=== PATIENT | female | born 1985 | race African-American/Black ===

== ENCOUNTER 2018-12-18 04:43 | Emergency (ER) | payer MEDICAID ==
[~2018-12-18] VITALS: Ht 167.6 cm; Wt 91.6 kg
[2018-12-18 06:06] LABS: CLARITY URINE CLOUDY (CLEAR); COLOR URINE DARK YELLOW (YELLOW); KETONES URINE TRACE (NEGATIVE); LEUKOCYTE ESTERASE URINE NEGATIVE (NEGATIVE); NITRITE URINE NEGATIVE (NEGATIVE); OCCULT BLOOD URINE 1+ (NEGATIVE); PROTEIN URINE NEGATIVE (NEGATIVE)
[2018-12-18] MEDS ORDERED: ACETAMINOPHEN 500MG TABLET PO ONE (07:30)
[2018-12-18 08:30] VITALS: BP 113/74
== END 2018-12-18 09:15 | disposition home or self-care (01) ==
LOC: ER 04:43
DX: N39.0 Urinary tract infection, site not specified (principal); R51 Headache; N92.6 Irregular menstruation, unspecified; F17.200 Nicotine dependence, unspecified, uncomplicated; F12.10 Cannabis abuse, uncomplicated; Z88.0 Allergy status to penicillin; Z98.890 Other specified postprocedural states
CPT/HCPCS: 99283

== ENCOUNTER 2019-01-02 20:22 | Emergency (ER) | payer MEDICAID, OTHER ==
[~2019-01-02] VITALS: Ht 167.6 cm; Wt 91.0 kg
[2019-01-02 20:55] VITALS: BP 126/83
== END 2019-01-02 23:00 | disposition left against medical advice (07) ==
LOC: ER 20:22
DX: F22 Delusional disorders (principal); F12.10 Cannabis abuse, uncomplicated; F17.210 Nicotine dependence, cigarettes, uncomplicated; Z98.890 Other specified postprocedural states; Z88.0 Allergy status to penicillin
CPT/HCPCS: 99284

== ENCOUNTER 2019-04-11 03:10 | Emergency (ER) | payer OTHER ==
[~2019-04-11] VITALS: Ht 172.7 cm; Wt 91.0 kg
[2019-04-11 03:27] VITALS: BP 110/67
== END 2019-04-11 04:40 | disposition left against medical advice (07) ==
LOC: ER 03:25
DX: F29 Unspecified psychosis not due to a substance or known physiological condition (principal); Z53.21 Procedure and treatment not carried out due to patient leaving prior to being seen by health care provider

== ENCOUNTER 2019-04-23 12:52 | Emergency (ER) | payer MEDICAID, OTHER ==
[~2019-04-23] VITALS: Ht 167.6 cm; Wt 95.0 kg
[2019-04-23 13:06] VITALS: BP 128/75
[2019-04-23] MEDS ORDERED: ACETAMINOPHEN 500MG TABLET PO ONE (14:30)
== END 2019-04-23 14:52 | disposition home or self-care (01) ==
LOC: ER 14:48
DX: L03.116 Cellulitis of left lower limb (principal); Z98.890 Other specified postprocedural states; Z88.0 Allergy status to penicillin
CPT/HCPCS: 99283

== ENCOUNTER 2020-03-14 23:27 | Emergency (ER) | payer MEDICAID ==
[~2020-03-14] VITALS: Ht 167.6 cm; Wt 94.0 kg
[2020-03-14 23:36] VITALS: BP 132/83
== END 2020-03-15 01:39 | disposition home or self-care (01) ==
LOC: ER 23:27
DX: M79.672 Pain in left foot (principal); M79.671 Pain in right foot; Z86.59 Personal history of other mental and behavioral disorders; Z88.0 Allergy status to penicillin; Z98.890 Other specified postprocedural states
CPT/HCPCS: 99282

== ENCOUNTER 2020-04-15 05:10 | Emergency (ER) | payer MEDICAID ==
[~2020-04-15] VITALS: Ht 172.7 cm; Wt 82.0 kg
[2020-04-15 06:20] VITALS: BP 110/70
[2020-04-15 06:31] LABS: BASOPHILS % 0.6 % (0.0-2.0); EOSINOPHILS % 0.2 % (0.0-5.0); HEMATOCRIT. 37.5 % (36.0-48.0); LYMPHOCYTES % 17.2 % (20.0-50.0); MEAN CORPUSCULAR HEMOGLOBIN 25.4 pg (28.0-32.0); MEAN CORPUSCULAR VOLUME 79.5 fL (81.0-99.0); MEAN PLATELET VOLUME 8.4 fl (7.4-10.4); MONOCYTES % 6.1 % (2.0-8.0); NEUTROPHILS % 75.9 % (40.0-76.0); PLATELET 436 x1000/uL (130-400); RED BLOOD CELL COUNT 4.71 mill/uL (4.2-5.4)
[2020-04-15 06:40] LABS: CHLORIDE 109 mEq/L (98-107)
[2020-04-15 06:44] LABS: ETHANOL BLOOD < 10 mg/dL
[2020-04-15] MEDS ORDERED: OLANZAPINE 10 MG/VIAL IM ONE (06:45)
== END 2020-04-15 07:04 | disposition home or self-care (01) ==
LOC: ER 05:10
DX: F15.10 Other stimulant abuse, uncomplicated (principal); F14.10 Cocaine abuse, uncomplicated; Z88.0 Allergy status to penicillin
CPT/HCPCS: 36415; 80053; 80307; 80320; 80329; 85025; 93005; 99284; J3490; G0480

== ENCOUNTER 2020-04-19 21:30 | Emergency (ER) | payer MEDICAID ==
[~2020-04-19] VITALS: Ht 172.7 cm; Wt 64.0 kg
[2020-04-19 21:41] VITALS: BP 132/88
[2020-04-19] MEDS ORDERED: ONDANSETRON HCL 4MG/2ML INJ IV STA (22:42)
== END 2020-04-19 23:58 | disposition left against medical advice (07) ==
LOC: ER 21:30
DX: R11.2 Nausea with vomiting, unspecified (principal); R10.9 Unspecified abdominal pain
CPT/HCPCS: 99283